=== PATIENT | female | born 1990 | race Caucasian/White ===

== ENCOUNTER 2017-10-28 17:03 | Emergency (ER) | payer OTHER ==
[2017-10-28 17:13] VITALS: BP 142/95; PULSE 83; RESP 16; TEMP 97.7; O2SAT 98
--- NOTE | 2017-10-28 17:25 | EDPHY ---
H & P Time Seen by Provider: 10/28/17 17:10 HPI/ROS: HPI Shock from computer. 27-year-old female by private vehicle. She comes from work. She reports that at 10:30 a.m. this morning she was using her computer. She went to unplug with her right hand. Her right hand was on the power cord to the computer. She reports that the computer short circuit and she sustained a shock to her right hand. Specifically the tip of her thumb, her index finger and her middle finger. She did not sustain any burn injury. She reports that she had some tingling in these hands after the event but denies this now. She denies any pain in any other part of her body. No swelling of her hand. She has not had any palpitations. There was no loss of consciousness. She denies any other complaint. ROS: Constitutional: No fever, no chills. No weakness. Respiratory: No cough. No shortness of breath. Cardiac: No chest pain, no palpitations. Gastrointestinal: No abdominal pain, no vomiting, no diarrhea. Musculoskeletal: No back pain. No neck pain. No myalgias or arthralgias. As above. Skin: No rashes or other skin lesions. Neurological: No headache. No focal weakness or altered sensation. Past medical history: No significant past medical history. Social history: Nonsmoker. Here by herself. No alcohol. Physical Exam: General Appearance: Alert, no distress. This patient is responding to questions appropriately and in full sentences. This patient appears well- hydrated and well-nourished. Eyes: Pupils equal and round no pallor or injection. No lid edema, erythema or injection. Right hand and upper extremity exam: Normal. There is no evidence of a burn injury/electrical injury. There is no swelling/edema, erythema, induration or other discoloration of the digits. Her capillary refill is normal in all digits. Her sensation and motor function is normal in all myotomes in dermatomes of her right hand. The right wrist, forearm, elbow, arm and shoulder are normal on manipulation and gross inspection. Respiratory: There are no retractions, lungs are clear to auscultation with good air movement bilaterally. Cardiovascular: Regular rate and rhythm. No murmur. Neurological: Motor sensory function is grossly intact. Cranial nerves are normal. Gait is normal. Skin: Warm and dry, no rashes. Musculoskeletal: Neck is supple and nontender. Extremities are symmetrical. All joints range without pain or impingement. Psychiatric: No agitation. No depression. Database: EKG: Imaging: Procedures: Emergency department course: Vital signs reviewed. Patient is mildly hypertensive. Vital signs are otherwise normal. No evidence of electrical injury. History is reassuring as well. She feels comfortable going home and I feel she is safe for discharge. Follow-up and return to emergency department precautions reviewed with her. All of her questions were answered. She was discharged in good condition. Differential Diagnosis: The differential diagnosis on this patient includes but is not limited to minor electrical injury. Burn injury, arrhythmia, rhabdomyolysis, significant electrical injury unlikely. This represents a partial list of diagnoses considered. These considerations are based on history, physical exam, past history, reassessment and diagnostic testing. Smoking Status: Never smoked Constitutional: Initial Vital Signs Temperature (C) 36.5 C 10/28/17 17:09 Heart Rate 83 10/28/17 17:09 Respiratory Rate 16 10/28/17 17:09 Blood Pressure 142/95 H 10/28/17 17:09 O2 Sat (%) 98 10/28/17 17:09 O2 Delivery Mode Room Air Allergies/Adverse Reactions: No Known Allergies Allergy (Unverified 10/28/17 17:13) Home Medications: Medication Instructions Recorded Lilian Allergy 10/28/17 Meryl 28 Tablet 10/28/17 Departure - Departure Disposition: Home, Routine, Self-Care Clinical Impression: Electrical shock of hand Instructions: Electrical Marx in Adults (ED) Additional Instructions: Read and follow provided instructions. Follow-up with your primary care physician in 1-2 days for re-evaluation as needed. Return to the emergency department for worsening symptoms, worsening pain in your hand, discoloration in your hand, swelling of your hand, heart palpitations or other serious concerns. Referrals: Milvia Busby MD [Primary Care Provider] - As per Instructions
== END 2017-10-28 17:35 | disposition home or self-care (01) ==
LOC: CED 17:03
DX: T75.4XXA Electrocution, initial encounter (principal)

== ENCOUNTER 2018-01-08 11:25 | Emergency (ER) | payer OTHER ==
[2018-01-08 11:30] VITALS: RESP 16; TEMP 98.4
--- NOTE | 2018-01-08 11:45 | EDPHY ---
H & P Stated Complaint: Low back pain since 01/07/18. Dark stool this am. Time Seen by Provider: 01/08/18 11:43 HPI/ROS: HPI: This is a 27-year-old female who presents with Chief Complaint: Low back pain since 01/07/18. Dark stool this am. Location: GI Quality: Blood in stool Duration: This a.m. Signs and Symptoms: no fever, no nausea, no vomiting, no hematemesis, + blood in stool, no abdominal bloating, no diarrhea, no back pain, no urinary symptoms , no vaginal bleeding/discharge, no indigestion, no chest pain, no shortness of breath Timing: Acute Severity: Mild Context: Patient is generally healthy, presents with right-sided aching, mild, nonradiating lumbar back pain that started yesterday and then today while having a bowel movement she noted about a tsp bright red blood in her stool. She reports that she has a history of C diff colitis in 2009 secondary to multiple antibiotics for sinus infections. She never followed up with Gastroenterology and has not received colonoscopy. Since that time, she has had no abdominal pain, irritable bowel type symptoms, blood in her stool. She has a bowel movement every other day to every 2 days. Eating and drinking normally. Denies fever/urinary symptoms/vaginal bleeding/vaginal discharge/ abdominal pain. She did take ibuprofen yesterday for her lower back discomfort. Denies any increased physical activity or injury. Modifying Factors: None Comment: ROS: see HPI Constitutional: No fever, no chills, no weight loss Eyes: No blurred vision Respiratory: No shortness of breath, no cough Cardiovascular: No chest pain, no palpitations Gastrointestinal: No nausea, no vomiting, no diarrhea, no hematemesis, + blood in stool Genitourinary: No dysuria, no blood in urine Extremities: No myalgias, no edema Neurologic: No weakness, no numbness Skin: No rashes, no petechiae Hematologic: No bruising, no bleeding Medical history: History C diff colitis. Surgical history: tonsillectomy, rhinoplasty, ear tubes current 2017 Social history: Employed as a behavioral therapist. CONSTITUTIONAL: Nontoxic-appearing extremely polite and cooperative young adult white female, awake and alert, no obvious distress HEENT: Atraumatic and normocephalic. NECK: supple, no midline tenderness, flexion 45 degrees, extension 45 degrees, right and left lateral flexion 45 degrees. No meningismus. Cardiovascular: Normal S1/S2, regular rate, regular rhythm, without murmur rub or gallop. PULMONARY/CHEST: Symmetrical and nontender. no crepitus. Clear to auscultation bilaterally. Good air movement. No accessory muscle usage. ABDOMEN: Soft, nondistended, nontender, no ecchymosis. PELVIC: no pain with rocking; bilateral hips flexion 125 degrees, extension 30 degrees, with no pain internal rotation and no pain external rotation. BACK: No midline tenderness, no paraspinous spasm, deep tendon reflexes 2/2, no pain with straight leg raise RECTAL: Good sphincter tone, light brown stool in vault, no external hemorrhoids , no fissures, no palpable masses, guaiac negative EXTREMITIES: 2/2 pulses, strength 5/5, DIP/PIP/MCP flexion/extension intact with good light touch sensation. no deformities, no clubbing, no cyanosis or edema. NEUROLOGICAL: no focal neuro deficits. GCS 15. Light touch sensation intact. SKIN: Warm and dry, no erythema. no rash. Good capillary refill. Source: Patient Exam Limitations: No limitations - Personal History LMP (Females 10-55): 8-14 Days Ago Current Tetanus Diphtheria and Acellular Pertussis (TDAP): Yes - Medical/Surgical History Hx Asthma: Yes Hx Chronic Respiratory Disease: No Hx Diabetes: No Hx Cardiac Disease: No Hx Renal Disease: No Hx Cirrhosis: No Hx Alcoholism: No Hx HIV/AIDS: No Hx Splenectomy or Spleen Trauma: No Other PMH: tonsil. rhinplasty. ear tubes current 2017 - Social History Smoking Status: Never smoked Constitutional: Initial Vital Signs Temperature (C) 36.9 C 01/08/18 11:27 Heart Rate 103 H 01/08/18 11:27 Respiratory Rate 16 01/08/18 11:27 Blood Pressure 128/89 H 01/08/18 11:27 O2 Sat (%) 97 01/08/18 11:27 O2 Delivery Mode Room Air Allergies/Adverse Reactions: No Known Allergies Allergy (Unverified 10/28/17 17:13) Home Medications: Medication Instructions Recorded Lilian Allergy 10/28/17 Meryl 28 Tablet 10/28/17 Polyethylene Glycol 3350 [Miralax 17 gm PO DAILY #10 pkt 01/08/18 17 gm (*)] Medical Decision Making - Diagnostics Imaging Results: Imaging Impressions Abdomen X-Ray 01/08/18 11:55 Impression: 1. Moderate constipation. ED Course/Re-evaluation: Labs, occult blood, KUB, urinalysis ordered Labs reviewed and grossly unremarkable Guaiac negative KUB my read shows moderate stool burden No signs of thrombosed hemorrhoids/acute abdomen/anemia/transaminitis/acute kidney injury/urinary tract infection/obstruction Advised MiraLax, increase fluid intake This patient was seen under the supervision of my secondary supervising physician. I evaluated care for this patient independently. Differential Diagnosis: Differential diagnosis includes but is not related to irritable bowel, inflammatory bowel disease, hemorrhoids, constipation, kidney stone. - Data Points Laboratory Results: Laboratory Results 01/08/18 12:15 01/08/18 12:15 01/08/18 01/08/18 01/08/18 12:15 12:15 12:15 WBC RBC Hgb Hct MCV MCH MCHC RDW Plt Count MPV Neut % (Auto) Lymph % (Auto) Hopkins % (Auto) Eos % (Auto) Baso % (Auto) Nucleat RBC Rel Count Absolute Neuts (auto) Absolute Lymphs (auto) Absolute Monos (auto) Absolute Eos (auto) Absolute Basos (auto) Absolute Nucleated RBC Immature Gran % Immature Gran # Sodium 144 mEq/L mEq/L (135-145) Potassium 4.2 mEq/L mEq/L (3.5-5.2) Chloride 107 mEq/L mEq/L (97-110) Carbon Dioxide 23 mEq/l mEq/l (22-31) Anion Gap 14 mEq/L mEq/L (8-16) BUN 5 mg/dL L mg/dL (7-23) Creatinine 0.7 mg/dL mg/dL (0.6-1.0) Estimated GFR > 60 Glucose 108 mg/dL H mg/dL (70-100) Calcium 9.8 mg/dL mg/dL (8.5-10.4) Total Bilirubin 0.3 mg/dL mg/dL (0.1-1.4) Conjugated Bilirubin 0.2 mg/dL mg/dL (0.0-0.5) Unconjugated Bilirubin 0.1 mg/dL mg/dL (0.0-1.1) AST 21 IU/L IU/L (14-46) ALT 31 IU/L IU/L (9-52) Alkaline Phosphatase 81 IU/L IU/L (38-126) Total Protein 7.4 g/dL g/dL (6.3-8.2) Albumin 4.4 g/dL g/dL (3.5-5.0) Lipase 91 IU/L IU/L (23-300) Beta HCG, Qual NEGATIVE Urine Color Urine Appearance Urine pH Ur Specific Pickens Urine Protein Urine Ketones Urine Blood Urine Nitrate Urine Bilirubin Urine Urobilinogen Ur Leukocyte Esterase Urine Glucose Stool Occult Bld Scrn NEGATIVE (NEGATIVE) 01/08/18 01/08/18 12:15 12:00 WBC 6.61 10^3/uL 10^3/uL (3.80-9.50) RBC 4.83 10^6/uL 10^6/uL (4.18-5.33) Hgb 14.4 g/dL g/dL (12.6-16.3) Hct 41.7 % % (38.0-47.0) MCV 86.3 fL fL (81.5-99.8) MCH 29.8 pg pg (27.9-34.1) MCHC 34.5 g/dL g/dL (32.4-36.7) RDW 11.8 % % (11.5-15.2) Plt Count 239 10^3/uL 10^3/uL (150-400) MPV 10.2 fL fL (8.7-11.7) Neut % (Auto) 41.6 % % (39.3-74.2) Lymph % (Auto) 51.4 % H % (15.0-45.0) Hopkins % (Auto) 5.7 % % (4.5-13.0) Eos % (Auto) 0.8 % % (0.6-7.6) Baso % (Auto) 0.3 % % (0.3-1.7) Nucleat RBC Rel Count 0.0 % % (0.0-0.2) Absolute Neuts (auto) 2.75 10^3/uL 10^3/uL (1.70-6.50) Absolute Lymphs (auto) 3.40 10^3/uL H 10^3/uL (1.00-3.00) Absolute Monos (auto) 0.38 10^3/uL 10^3/uL (0.30-0.80) Absolute Eos (auto) 0.05 10^3/uL 10^3/uL (0.03-0.40) Absolute Basos (auto) 0.02 10^3/uL 10^3/uL (0.02-0.10) Absolute Nucleated RBC 0.00 10^3/uL 10^3/uL (0-0.01) Immature Gran % 0.2 % % (0.0-1.1) Immature Gran # 0.01 10^3/uL 10^3/uL (0.00-0.10) Sodium Potassium Chloride Carbon Dioxide Anion Gap BUN Creatinine Estimated GFR Glucose Calcium Total Bilirubin Conjugated Bilirubin Unconjugated Bilirubin AST ALT Alkaline Phosphatase Total Protein Albumin Lipase Beta HCG, Qual Urine Color YELLOW Urine Appearance MODERATELY TURBID Urine pH 8.0 H (5.0-7.5) Ur Specific [place] 1.009 (1.002-1.030) Urine Protein NEGATIVE (NEGATIVE) Urine Ketones NEGATIVE (NEGATIVE) Urine Blood NEGATIVE (NEGATIVE) Urine Nitrate NEGATIVE (NEGATIVE) Urine Bilirubin NEGATIVE (NEGATIVE) Urine Urobilinogen NEGATIVE EU EU (0.2-1.0) Ur Leukocyte Esterase NEGATIVE (NEGATIVE) Urine Glucose NEGATIVE (NEGATIVE) Stool Occult Bld Scrn Departure - Departure Disposition: Home, Routine, Self-Care Clinical Impression: Blood in stool Constipation Qualifiers: Constipation type: unspecified constipation type Qualified Code(s): K59.00 - Constipation, unspecified Condition: Good Instructions: Rectal Bleeding (ED) Additional Instructions: X-ray today shows moderate constipation. Consume a minimum of 64 oz of water or electrolyte fluid replacement drinks that include Gatorade, Powerade, Pedialyte. Eat a bland diet for the next 48 hours and then slowly advance as tolerated. Take MiraLax with Gatorade for the next 3 days and then daily as needed for constipation. Follow-up with primary care provider in the next 1-2 weeks. At some point in the near future, it would be beneficial for referral to general surgery for outpatient colonoscopy. Return to the Emergency Room if symptoms do not resolve in the next 48-72 hours , you spike a fever > 102 F, or experience intractable abdominal pain/nausea/ vomiting. Referrals: Milvia Busby MD [Primary Care Provider] - As per Instructions Prescriptions: Polyethylene Glycol 3350 [Miralax 17 gm (*)] 17 gm PO DAILY #10 pkt
[2018-01-08 12:25] LABS: PLATELET COUNT 239 10^3/uL (150-400)
[2018-01-08 13:19] VITALS: BP 119/88; PULSE 80; O2SAT 95
== END 2018-01-08 13:17 | disposition home or self-care (01) ==
DX: R19.5 Other fecal abnormalities (principal); K59.00 Constipation, unspecified; J45.909 Unspecified asthma, uncomplicated